=== PATIENT | female | born 1995 | race Caucasian/White ===

== ENCOUNTER 2016-09-01 07:02 | Emergency (ER) | payer BC ==
[2016-09-01 07:12] VITALS: BP 127/62
--- NOTE | 2016-09-01 07:23 | UC ---
Throat Pain/Nasal Jose Angel HPI - HPI Summary HPI Summary: awoke this am with fever 102, ST. Pt is Type I DM. States her sugar this am was 130. - History of Current Complaint Chief Complaint: UCGeneralIllness Stated Complaint: THROAT Time Seen by Provider: 09/01/16 07:19 Hx Obtained From: Patient Hx Last Menstrual Period: 08/29/16 Onset/Duration: Gradual Onset, Lasting Hours, Still Present Severity: Mild Pain Intensity: 2 Pain Scale Used: 0-10 Numeric Cough: None Associated Signs & Symptoms: Positive: Dysphagia, Nasal Discharge - Epiglottits Risk Factors Epiglottis Risk Factors: Negative - Allergies/Home Medications Allergies/Adverse Reactions: Allergies Allergy/AdvReac Type Severity Reaction Status Date / Time No Known Allergies Allergy Verified 09/01/16 07:12 Home Medications: Home Medications Acetaminophen TAB* [Tylenol TAB*] 650 mg PO Q4H PRN 09/01/16 [History Confirmed 09/01/16] Insulin LISPRO* [HumaLOG*] 1 unit .SEE ORDER DAILY 09/01/16 [History Confirmed 09/01/16] PMH/Surg Hx/FS Hx/Imm Hx Endocrine History Of: Reports: Diabetes - TYPE I - Surgical History Surgical History: Yes Surgery Procedure, Year, and Place: LEFT FOOT - Family History Known Family History: Positive: Diabetes - type II - Social History Occupation: Employed Full-time Alcohol Use: Rare Substance Use Type: None Smoking Status (MU): Never Smoked Tobacco Review of Systems Constitutional: Fever Skin: Negative Eyes: Negative ENT: Sore Throat, Nasal Discharge Respiratory: Negative Cardiovascular: Negative Gastrointestinal: Negative Genitourinary: Negative Motor: Negative Neurovascular: Negative Musculoskeletal: Negative Neurological: Negative Psychological: Negative All Other Systems Reviewed And Are Negative: Yes Physical Exam Triage Information Reviewed: Yes Appearance: Well-Nourished, Ill-Appearing, Pain Distress Vital Signs: Initial Vital Signs Temp 99.1 F 09/01/16 07:07 Pulse 118 09/01/16 07:07 Resp 16 09/01/16 07:07 BP 127/62 09/01/16 07:07 Pulse Ox 100 09/01/16 07:07 tachycardia noted Vital Signs Reviewed: Yes Eyes: Positive: Conjunctiva Clear ENT: Positive: Pharyngeal erythema, TMs normal Neck: Positive: Supple, Nontender, No Lymphadenopathy Respiratory: Positive: Lungs clear, Normal breath sounds, No respiratory distress Cardiovascular: Positive: RRR, No Murmur, Pulses Normal, Brisk Capillary Refill Musculoskeletal: Positive: Strength Intact, ROM Intact Neurological: Positive: Alert, Muscle Tone Normal Psychological Exam: Normal Skin Exam: Normal Throat Pain/Nasal Course/Dx - Course Course Of Treatment: rapid A neg. rapid influenza neg A and B - Differential Dx/Diagnosis Differential Diagnosis/HQI/PQRI: Influenza, Pharyngitis, Sinusitis, URI Provider Diagnoses: viral syndrome. fever. type I DM Discharge - Discharge Plan Condition: Stable Disposition: HOME Patient Education Materials: Viral Syndrome (ED) Forms: *Work Release Referrals: Lawrence ROJAS,Ra [Primary Care Provider] -
== END 2016-09-01 08:01 | disposition home or self-care (01) ==
LOC: UCCORT 07:02
DX: B34.9 Viral infection, unspecified (principal); R50.9 Fever, unspecified; E10.9 Type 1 diabetes mellitus without complications; Z79.4 Long term (current) use of insulin
CPT/HCPCS: 87502; 87651; 99201; G0463